=== PATIENT | female | born 1950 | race Caucasian/White ===

== ENCOUNTER 2016-12-23 19:05 | Emergency (ER) | payer MEDICARE ==
[~2016-12-23 19:05] MED LIST: CATAPRES0.1 MG PO; CYANOCOBAL1000 MCG/1 SQ; DIFLUCAN100 MG PO; FLONASE 0.05% N16 GM; IBUPROFEN800 MG PO; LEVAQUIN500 MG PO; LEVOCETIRIZINE D5 MG PO; LEVOTHYROXINE75 MCG PO; METFORMIN HCL500 MG PO; NORCO 10-325 T1 EACH PO; POTASSIUM CHLO10 ME1 PO; SIMVASTATIN20 MG PO; TORSEMIDE20 MG PO; VALIUM5 MG PO
== END 2016-12-23 22:04 ==
LOC: ER 19:05
DX: S90.32XA Contusion of left foot, initial encounter (principal); L03.116 Cellulitis of left lower limb; W22.09XA Striking against other stationary object, initial encounter; E11.9 Type 2 diabetes mellitus without complications; I10 Essential (primary) hypertension; Z79.899 Other long term (current) drug therapy; Z79.84 Long term (current) use of oral hypoglycemic drugs; Z88.0 Allergy status to penicillin; Z88.2 Allergy status to sulfonamides; Z88.8 Allergy status to other drugs, medicaments and biological substances; Z88.7 Allergy status to serum and vaccine
CPT/HCPCS: 73630; 96372; 99283-25